=== PATIENT | female | born 1965 | race Caucasian/White ===

== ENCOUNTER → 2018-01-07 | Outpatient (CLI) | payer BC ==
--- NOTE | 2018-01-08 07:11 | US ---
EXAMINATION TYPE: US thyroid st tissue head/neck DATE OF EXAM: 01/07/2018 COMPARISON: 10/27/2012 CLINICAL HISTORY: E04.2 nontoxic multinodular goiter. GLAND SIZE: Right Lobe: 6.1 x 2.8 x 2.3 cm Overall Parenchyma: heterogenous Left Lobe: 5.0 x 1.2 x 1.4 cm Overall Parenchyma: homogeneous Isthmus Thickness: 0.4 cm NODULES RIGHT: # of nodules measured on right: 3 1. 1.5 X 0.8 x 1.2 cm isoechoic solid nodule at the upper pole with well-defined margins. This nod ule is wider than tall and shows no intranodular vascularity. Prior size: 1.0 x 0.5 x 0.7 cm 2. 2.2 X 1.2 x 1.6 cm hypoechoic solid nodule at the mid/lateral pole with well-defined margins. Th is nodule is wider than tall and shows intranodular vascularity. Prior size: 1.8 x 1.2 x 1.7 cm 3. 2.5 X 2.0 x 1.9 cm isoechoic solid nodule at the mid/medial pole with well-defined margins. This nodule is taller than wide and shows no intranodular vascularity. Prior size: 2.3 x 1.2 x 1.7 cm LEFT: # of nodules measured on left: 0 ISTHMUS: # of nodules measured in the isthmus: 0 Bilateral neck scanned, no evidence of lymphadenopathy. IMPRESSION: Nonspecific thyroid nodularity. The need to biopsy should be made on a clinical basis.
== END | disposition home or self-care (01) ==
LOC: RADUSWWP 16:01
PROVIDERS: ATTEND Family Medicine
DX: E04.2 Nontoxic multinodular goiter (principal)
CPT/HCPCS: 76536

== ENCOUNTER 2018-08-25 12:33 | Day surgery (SDC) | payer BC ==
[2018-08-25 14:36] VITALS: BP 120/66; PULSE 77; RESP 14
--- NOTE | 2018-08-25 16:13 | US ---
EXAMINATION TYPE: US FNA thyroid first lesion DATE OF EXAM: 08/25/2018 COMPARISON: Ultrasound thyroid 01/07/2018 HISTORY: Thyroid nodule, E04.1 Maximal barrier technique was utilized. Ultrasound using sterile technique. The skin overlying the ri ght-sided thyroid nodule was localized with ultrasound and the overlying skin prepped and draped. Pre viously described nodules on the right are confluent on current exam. Lidocaine used for local anesth esia. 5 passes with a 25-gauge needle were made into the nodule under ultrasound guidance. Aspirate s laurel submitted to cytology. Following the procedure hemostasis achieved. No immediate complication IMPRESSION: Status post ultrasound-guided fine-needle aspiration of right thyroid nodule, pathology p ending.
== END 2018-08-25 14:30 | disposition home or self-care (01) ==
LOC: RADPROMAIN 12:33
PROVIDERS: ATTEND Otolaryngology Plastic Surgery within the Head & Neck
DX: E04.1 Nontoxic single thyroid nodule (principal)
CPT/HCPCS: 10005; 88173; 88305

== ENCOUNTER → 2019-03-26 | Outpatient (CLI) | payer BC ==
--- NOTE | 2019-03-26 12:50 | US ---
EXAMINATION TYPE: US thyroid st tissue head/neck DATE OF EXAM: 03/26/2019 COMPARISON: 01/07/2018 thyroid ultrasound and fine-needle aspiration dated 08/25/2018 CLINICAL HISTORY: E04.2 Multinodular goiter. follow up nodules GLAND SIZE: Right Lobe: 4.7 x 2.4 x 2.3 cm Overall Parenchyma: heterogenous Left Lobe: 4.4 x 1.3 x 1.1 cm Overall Parenchyma: homogeneous Isthmus Thickness: 0.4 cm NODULES RIGHT: # of nodules measured on right: 3 1. 2.7 X 2.0 x 2.2 cm , prior fine-needle aspiration has been performed of this nodule, mixed nodul e at the Mid pole with well-defined margins. This nodule is taller than wide and shows intranodular vascularity. Prior size: 2.5 x 2.0 x 1.9 cm 2. 1.8 X 1.4 x 1.6 cm isoechoic nodule at the lower med pole with well-defined margins; interrupted peripheral calcification. This nodule is taller than wide and shows intranodular vascularity. Prior size: 2.2 x 1.2 x 1.6 cm 3. 0.8 X 0.7 x 0.8 cm hypoechoic nodule at the upper pole with well-defined margins. This nodule is taller than wide and shows intranodular vascularity. Prior size: 1.5 x 0.8 x 1.2 cm LEFT: # of nodules measured on left: 1 1. 0.4 X 0.4 x 0.2 cm hypoechoic nodule at the mid pole with well-defined margins. This nodule is wider than tall and shows intranodular vascularity. Prior size: No prior ISTHMUS: # of nodules measured in the isthmus: 0 Bilateral neck scanned, no evidence of lymphadenopathy. IMPRESSION: Similar size of the dominant previously biopsied right thyroid nodule and smaller right t hyroid nodules. Solitary new 4 mm left thyroid nodule. Multinodular goiter.
== END | disposition home or self-care (01) ==
LOC: RADUSWWP 11:05
PROVIDERS: ATTEND Otolaryngology Plastic Surgery within the Head & Neck
DX: E04.2 Nontoxic multinodular goiter (principal)
CPT/HCPCS: 76536

== ENCOUNTER → 2019-11-02 | Outpatient (CLI) | payer BC ==
--- NOTE | 2019-11-02 15:42 | US ---
EXAMINATION TYPE: US thyroid st tissue head/neck DATE OF EXAM: 11/02/2019 COMPARISON: US 03/26/2019 CLINICAL HISTORY: E04.2 Nontoxic multinodular goiter. GLAND SIZE: Right Lobe: 6.0 x 2.5 x 2.5 cm Overall Parenchyma: homogenous Left Lobe: 4.9 x 1.2 x 1.4 cm Overall Parenchyma: homogeneous Isthmus Thickness: 0.2 cm NODULES RIGHT: # of nodules measured on right: 3 1. 3.0 X 2.1 x 2.3 cm hypoechoic mixed nodule at the mid pole with poorly defined margins; . This nodule is wider than tall and shows intranodular vascularity. Prior size: 2.7 x 2.2 x 2.0 cm 2. 2.4 X 1.5 x 1.8 cm hypoechoic solid nodule at the mid pole with well-defined margins; . This nod ule is wider than tall and shows intranodular vascularity. Prior size: 1.8 x 1.6 x 1.4 cm 3. 1.4 X 1.1 x 0.8 cm nodule at the pole with margins; . This nodule is and shows . Prior size: 0.8 x 0.8 x 0.7 cm LEFT: # of nodules measured on left: 1 1. 0.4 X 0.2 x 0.3 cm hypoechoic mixed nodule at the mid pole with well-defined margins; . This no dule is wider than tall and shows no intranodular vascularity. Prior size: 0.4 x 0.2 x 0.4 cm ISTHMUS: # of nodules measured in the isthmus: 0 Bilateral neck scanned, no evidence of lymphadenopathy. IMPRESSION: Enlarging right lobe thyroid nodules
== END | disposition home or self-care (01) ==
LOC: RADUSWWP 12:11
PROVIDERS: ATTEND Otolaryngology Plastic Surgery within the Head & Neck
DX: E04.2 Nontoxic multinodular goiter (principal)
CPT/HCPCS: 76536

== ENCOUNTER → 2020-08-17 | Outpatient (CLI) | payer BC ==
--- NOTE | 2020-08-19 12:08 | BD ---
EXAMINATION TYPE: Axial Bone Density DATE OF EXAM: 08/17/2020 COMPARISON: NONE CLINICAL HISTORY: Postmenopausal Height: 65.2 IN Weight: 175 LBS FRAX RISK QUESTIONS: History of Fracture in Adulthood: RT ANKLE FX AGE 49 RISK FACTORS HISTORY OF: Active: YES Postmenopausal woman: AGE 52 MEDICATIONS: Additional Medications: CALCIUM, VIT D, BLOOD PRESSURE MED EXAM MEASUREMENTS: Bone mineral densitometry was performed using the [employer] System. Bone mineral density as measured about the Lumbar spine is: ----- L1-L4(G/cm2): 1.200 T Score Values are as follows: ----- L2: 0.5 ----- L3: 0.3 ----- L4: -0.3 ----- L1-L4: 0.2 Bone mineral density BASELINE Bone mineral density about the R hip (g/cm2): 0.836 Bone mineral density about the L hip (g/cm2): 0.851 T Score values are as follows: -----R Neck: -1.5 -----L Neck: -1.3 -----R Total: -0.6 -----L Total: -0.5 Bone mineral density BASELINE 10 year probability of fracture FRAX for a major osteoporotic fracture is 11.7% and for a hip fractur e 0.9% IMPRESSION: Osteopenia (T Score between -2.5 and -1). There is slightly increased risk of fracture and the patient may be considered for treatment. Re-Screen 2-5 years. NOTE: T-SCORE=SD OF THE YOUNG ADULT MEAN.
--- NOTE | 2020-08-22 14:11 | MM ---
Reason for exam: screening (asymptomatic). Last mammogram was performed 6 years and 8 months ago. History: Patient is postmenopausal. Took hormonal contraceptives for 10 years beginning at age 17. Physical Findings: A clinical breast exam by your physician is recommended on an annual basis and results should be correlated with mammographic findings. MG 3D Screening Mammo W/Cad Bilateral CC and MLO view(s) were taken. Prior study comparison: December 21, 2013, mammogram, performed at [facility]. October 10, 2012, mammogram, performed at [facility]. September 14, 2004, bilateral screening mammogram w/CAD. The breast tissue is heterogeneously dense. This may lower the sensitivity of mammography. No significant changes when compared with prior studies. ASSESSMENT: Benign, BI-RAD 2 RECOMMENDATION: Routine screening mammogram of both breasts in 1 year.
== END | disposition home or self-care (01) ==
LOC: RADMAMWWP 10:56
PROVIDERS: ATTEND Obstetrics & Gynecology
DX: Z12.31 Encounter for screening mammogram for malignant neoplasm of breast (principal); M85.89 Other specified disorders of bone density and structure, multiple sites; Z79.3 Long term (current) use of hormonal contraceptives
CPT/HCPCS: 77063; 77067; 77080

== ENCOUNTER → 2021-11-10 | Outpatient (CLI) | payer BC ==
--- NOTE | 2021-11-13 08:23 | MM ---
Reason for Exam: Screening (asymptomatic). Last mammogram was performed 1 year(s) and 2 month(s) ago. Patient History: Menarche at age 13. First Full-Term at age 27. Postmenopausal. Patient has history of breast feeding. Hormonal Contraceptives for 10 years from age 17 until age 27. Risk Values: Vera 5 year model risk: 1.2%. NCI Lifetime model risk: 8.1%. Prior Study Comparison: 11/07/2005 Bilateral Screening Mammogram, [facility]. 10/10/2012 Screening Mammogram, [facility]. 12/21/2013 Screening Mammogram, [facility]. 08/17/2020 Bilateral Screening Mammogram, [facility]. Tissue Density: The breast tissue is heterogeneously dense. This may lower the sensitivity of mammography. Findings: Analyzed By CAD. Stable small well-defined round mass towards the left axilla. Occasional tiny scattered benign-appearing round calcification redemonstrated. There is no suspicious new group of microcalcifications or new suspicious mass in either breast. Overall Assessment: Benign, BI-RAD 2 Management: Screening Mammogram of both breasts in 1 year. A clinical breast exam by your physician is recommended on an annual basis and results should be correlated with mammographic findings. Electronically signed and approved by: Danilo Garcia M.D.
== END | disposition home or self-care (01) ==
LOC: RADMAMWWP 13:22
PROVIDERS: ATTEND Obstetrics & Gynecology
DX: Z12.31 Encounter for screening mammogram for malignant neoplasm of breast (principal); Z78.0 Asymptomatic menopausal state
CPT/HCPCS: 77063; 77067

== ENCOUNTER → 2023-01-16 | Outpatient (CLI) | payer BC ==
--- NOTE | 2023-01-17 09:20 | CA ---
Transthoracic Echo Report Name: Lorna Brown Age: 57 Gender: F : 1965 Exam Date: 01/16/2023 13:08 Exam Location: [facility] Ht (in): 66 Wt (lb): 157 Ordering Physician: Callum Bradford MD Attending/Referring Phys: Dental Prosthetist July Alarcon RDCS Procedure CPT: Indications: R01.1 CARDIAC MURMUR, UNSPECIFIED Cardiac Hx: Technical Quality: Good Contrast 1: Total Dose (mL): Contrast 2: Total Dose (mL): MEASUREMENTS (Male / Female) Normal Values 2D ECHO LV Diastolic Diameter PLAX 4.3 cm 4.2 - 5.9 / 3.9 - 5.3 cm LV Systolic Diameter PLAX 3.2 cm IVS Diastolic Thickness 0.8 cm 0.6 - 1.0 / 0.6 - 0.9 cm LVPW Diastolic Thickness 0.8 cm 0.6 - 1.0 / 0.6 - 0.9 cm LV Relative Wall Thickness 0.4 RV Internal Dim ED PLAX 3.1 cm LA Systolic Diameter LX 3.3 cm 3.0 - 4.0 / 2.7 - 3.8 cm LV Diastolic Volume MOD 4C 95.2 cm??? LV Systolic Volume MOD 4C 39.2 cm??? LV Ejection Fraction MOD 4C 58.8 % LV Cardiac Index MOD 4C 2507.8 cm???/min???m??? LV Diastolic Length 4C 7.6 cm LV Systolic Length 4C 5.6 cm LV Diastolic Volume MOD 2C 69.9 cm??? LV Systolic Volume MOD 2C 28.6 cm??? LV Ejection Fraction MOD 2C 59.1 % LV Cardiac Index MOD 2C 1849.7 cm???/min???m??? LV Diastolic Length 2C 7.1 cm LV Systolic Length 2C 5.9 cm LA Volume 40.3 cm??? 18 - 58 / 22 - 52 cm??? LA Volume Index 22.0 cm???/m??? 16 - 28 cm???/m??? M-MODE Aortic Root Diameter MM 2.7 cm MV E Point Septal Separation 0.4 cm AV Cusp Separation MM 1.9 cm DOPPLER AV Peak Velocity 128.4 cm/s AV Peak Gradient 6.6 mmHg MV Area PHT 3.9 cm??? Mitral E Point Velocity 111.1 cm/s Mitral A Point Velocity 77.7 cm/s Mitral E to A Ratio 1.4 MV Deceleration Time 196.7 ms MV E' Velocity 7.1 cm/s Mitral E to MV E' Ratio 15.7 TR Peak Velocity 227.6 cm/s TR Peak Gradient 20.7 mmHg Right Ventricular Systolic Press 25.7 mmHg FINDINGS Left Ventricle Left ventricular ejection fraction is estimated at 55-60 %. Left ventricular cavity size normal. Left ventricular wall thickness normal. Right Ventricle Normal right ventricular size. Right ventricular systolic pressure within normal limits. Right Atrium Normal right atrial size. Left Atrium Normal left atrial size. Mitral Valve Structurally normal mitral valve. No mitral stenosis, regurgitation or prolapse. Aortic Valve Trileaflet aortic valve. No aortic valve stenosis or regurgitation. Tricuspid Valve Structurally normal tricuspid valve. Trace tricuspid regurgitation. Pulmonic Valve Structurally normal pulmonic valve. No pulmonic regurgitation. Pericardium No pericardial effusion. Aorta Normal size aortic root and proximal ascending aorta. CONCLUSIONS Normal LV systolic function Overall normal intracardiac valves Previewed by: Dr. Renaldo Gore MD (Electronically Signed) Final Date: 17 January 2023 09:19
== END | disposition home or self-care (01) ==
LOC: RADECHMAIN 12:55
PROVIDERS: ATTEND Internal Medicine
DX: R01.1 Cardiac murmur, unspecified (principal)
CPT/HCPCS: 93306

== ENCOUNTER → 2024-01-03 | Outpatient (CLI) | payer BC ==
[2024-01-03 15:33] LABS: Chol/HDL Ratio 3.41 Ratio; LDL Cholesterol,Calculated 144.3 mg/dL (0.0-131.0); VLDL Calculation 15.54 mg/dL (5.00-40.00)
== END | disposition home or self-care (01) ==
LOC: LABWHC1 11:38
PROVIDERS: ATTEND Family Medicine
DX: I10 Essential (primary) hypertension (principal); E78.2 Mixed hyperlipidemia
CPT/HCPCS: 36415; 80061

== ENCOUNTER → 2024-04-13 | Outpatient (CLI) | payer BC ==
[2024-04-13 18:46] LABS: Basophils # (A) 0.03 X 10*3/uL (0.00-0.10); Basophils % (A) 0.4 %; Eosinophils # (A) 0.13 X 10*3/uL (0.04-0.35); Eosinophils % (A) 1.8 %; HCT 43.1 % (37.2-46.3); HGB 14.4 g/dL (12.0-15.0); Lymphocytes # (A) 1.74 X 10*3/uL (0.90-5.00); Lymphocytes % (A) 23.5 %; MCH 32.8 pg (27.0-32.0); MCHC 33.4 g/dL (32.0-37.0); MCV 98.2 FL (80.0-97.0); Mean Platelet Volume 10.8 FL (9.5-12.2); Monocytes # (A) 0.67 X 10*3/uL (0.20-1.00); Monocytes % (A) 9.1 %; NRBC Per 100 WBC 0 X 10*3/uL (0.00-0.01); Neutrophils % (A) 64.9 %; Platelet Count 242 X 10*3/uL (140-440); RBC 4.39 X 10*6/uL (4.10-5.20); WBC 7.39 X 10*3/uL (4.50-10.00)
[2024-04-13 19:20] LABS: ALT 19 U/L (8-44); AST 18 U/L (13-35); Albumin 4.7 g/dL (3.8-4.9); Albumin/Globulin Ratio 2.04 Ratio (1.60-3.17); Alkaline Phosphatase 65 U/L (41-126); BUN/Creat Ratio 16.25 Ratio (12.00-20.00); Calcium 9.8 mg/dL (8.7-10.3); Chloride 101 mmol/L (96-109); Chol/HDL Ratio 3.39 Ratio; Globulin 2.3 g/dL (1.6-3.3); Glucose 109 mg/dL (70-110); LDL Cholesterol,Calculated 126.5 mg/dL (0.0-131.0); Sodium 141 mmol/L (135-145); T4, Free (Free Thyroxine) 1.21 ng/dL (0.80-1.80); Total Bilirubin 0.3 mg/dL (0.3-1.2)
== END | disposition home or self-care (01) ==
LOC: LABWHC1 12:55
PROVIDERS: ATTEND Family Medicine
DX: E78.2 Mixed hyperlipidemia (principal); I10 Essential (primary) hypertension; R73.03 Prediabetes; E04.1 Nontoxic single thyroid nodule
CPT/HCPCS: 36415; 80053; 80061; 83036; 84439; 84443; 85025